=== PATIENT | male | born 1995 | race African-American/Black ===

== ENCOUNTER 2020-06-25 11:36 | Emergency (ER) | payer SELFPAY ==
[~2020-06-25] VITALS: Ht 188 cm; Wt 79.5 kg
[~2020-06-25 11:36] MED LIST: ADVAIR IH; ALBUTEROL0.09 MG/A1 IH; AMOXICILLIN 50500 MG PO; AURALGAN EAR DR15 ML OT; CEPHALEXIN500 M1 PO; CETIRIZINE; PROVENTIL0.09 MG/A1 IH; RT ADVAIR 128 DISKUS IH; SEPTRA DS 8001 TAB PO; SINGULAIR 5M5 MG/TAB PO; SINGULAIR5 MG PO; TAMIFLU 75MG75 MG PO; ZOFRAN 4MG T4 MG/TAB PO
[2020-06-25 12:23] VITALS: BP 151/70; TEMP 98.2
[2020-06-25 15:33] VITALS: PULSE 76
== END 2020-06-25 15:34 | disposition home or self-care (01) ==
LOC: COL.ER 11:36
DX: U07.1 COVID-19 (principal); F17.200 Nicotine dependence, unspecified, uncomplicated

== ENCOUNTER 2023-09-25 13:55 | Emergency (ER) | payer SELFPAY ==
[~2023-09-25] VITALS: Ht 188 cm; Wt 77.3 kg
[~2023-09-25 13:55] MED LIST changes: +AMOXICILLIN 8751 TAB PO; +K-DUR20 MEQ PO; +NYSTATIN OR100 MU/ML PO
[2023-09-25] MEDS ORDERED: AMOXICILLIN 50500 MG PO (14:13)
[2023-09-25] MEDS ORDERED: NORCO 325 MG-51 TAB PO (14:13)
[2023-09-25 14:27] VITALS: BP 133/78; PULSE 91; TEMP 98.2
[2023-09-25] MEDS ORDERED: MYCELEX10 MG/TAB MM (14:29)
== END 2023-09-25 14:27 | disposition home or self-care (01) ==
LOC: COL.ER 13:55
DX: K08.89 Other specified disorders of teeth and supporting structures (principal)